=== PATIENT | male | born 1975 | race Asian ===

== ENCOUNTER 2017-01-19 02:09 | Emergency (ER) | payer SELFPAY ==
[2017-01-19 02:48] LABS: BASOPHIL % 1.9 % (0-2); PLATELET COUNT 338 x10^3mcL (130-400); RED CELL DISTRIBUTION WIDTH 12.9 % (11.5-14.5)
[2017-01-19 03:14] LABS: ALBUMIN 3.9 g/dL (3.4-5.0); ALKALINE PHOSPHATASE 79 U/L (46-116); ALT/SGPT 44 U/L (16-63); AMYLASE 90 U/L (25-115); AST/SGOT 16 U/L (15-37); BILIRUBIN TOTAL 0.9 mg/dL (0.20-1.00); CALCIUM 8.9 mg/dL (8.5-10.1); CARBON DIOXIDE 33.3 mmol/L (21-32); CHLORIDE SERUM 104 mmol/L (98-107); CREATININE SERUM 1.1 mg/dL (0.7-1.3); GFR1 > 60 mL/min; GLUCOSE SERUM 112 mg/dL (74-106); LIPASE 250 IU/L (73-393); SODIUM SERUM 142 mmol/L (136-145); TOTAL PROTEIN, SERUM 6.9 g/dL (6.4-8.2)
[2017-01-19] MEDS ORDERED: AMITRIPTYLINE50 M1 PO (03:51)
[2017-01-19] MEDS ORDERED: ZOF4 PO (03:51)
[2017-01-19] MEDS ORDERED: PANTOPRAZOLE SO40 M1 PO (03:51)
[2017-01-19] MEDS ORDERED: TRAMADOL HCL50 MG PO (03:52)
[2017-01-19] MEDS ORDERED: REGLAN10 M1 PO (03:52)
[2017-01-19] MEDS ORDERED: NOR10 PO (03:52)
[2017-01-19] MEDS ORDERED: MORPHINE SULFAT30 M6 PO (03:53)
[2017-01-19] MEDS ORDERED: ZOLOFT25 MG PO (03:53)
[2017-01-19] MEDS ORDERED: NORCO1 TA2 PO (03:54)
[2017-01-19 06:14] LABS: microscopic required? NO
[2017-01-19 06:32] LABS: urine erythrocyte NEGATIVE (NEGATIVE)
[2017-01-19 06:41] LABS: CHOLESTEROL/HDL RATIO 5.6
[2017-01-19 06:43] LABS: FREE T4 1.22 ng/dL (0.76-1.46); FREE THYROXINE INDEX 3.8 ug/dL (1.4-4.5); T4(THYROXINE) 9.7 ug/dL (4.7-13.3)
[2017-01-19 06:44] LABS: AMPHETAMINE QUAL UR NONE DETECTED (NEG <=1000)
[2017-01-19 06:45] LABS: T3 TOTAL 0.95 ng/mL
[2017-01-19 19:33] VITALS: BP 168/93
== END 2017-01-19 19:33 | disposition left against medical advice (07) ==
LOC: ED 02:09
PROVIDERS: Emergency Medicine; Family Medicine
DX: K31.84 Gastroparesis (principal); E87.6 Hypokalemia; E86.0 Dehydration; Z79.899 Other long term (current) drug therapy; Z79.1 Long term (current) use of non-steroidal anti-inflammatories (NSAID); Z79.891 Long term (current) use of opiate analgesic
CPT/HCPCS: 80307; 83880; 84439; C9113; G0480; J2060; J2270; J2405; J2550; J2765; J3480; J3490; J7030; J7040